=== PATIENT | male | born 1950 | race Caucasian/White ===

== ENCOUNTER 2023-06-08 10:59 | Inpatient (IN) | payer OTHER ==
[~2023-06-08] VITALS: Ht 172.7 cm; Wt 87.3 kg
[2023-06-08 11:19] VITALS: BP_SYST 166; PULSE 74; RESP 18; TEMP 98.3; O2SAT 98
[2023-06-08] MEDS ORDERED: NACL 0.9% 1,000 ML IV ONE (11:45)
[2023-06-08 12:14] LABS: BASOPHILS % (AUTO) 0.1 % (0.0-2.0); EOSINOPHILS # (AUTO) 0.4 K/uL (0.0-0.4); EOSINOPHILS % (AUTO) 1.5 % (0.0-4.0); HEMATOCRIT 36.4 % (36-54); HEMOGLOBIN 12.3 g/dL (14.0-18.0); LYMPHOCYTES # (AUTO) 0.6 K/uL (1.0-5.5); LYMPHOCYTES % (AUTO) 2.4 % (20.5-51.5); MEAN CORPUSCULAR HEMOGLOBIN 30 pg (27-31); MEAN CORPUSCULAR HGB CONC 34 % (32-36); MEAN CORPUSCULAR VOLUME 89 fL (79.0-98.0); MONOCYTES % (AUTO) 4.1 % (1.7-9.3); NEUTROPHILS % (AUTO) 91.9 % (40.0-70.0); PLATELET COUNT (AUTO) 190 K/uL (130-430); RED BLOOD CELL COUNT(AUTO) 4.08 MIL/uL (4.2-6.2); RED CELL DISTRIBUTION WIDTH 14.5 % (9.0-15.0)
[2023-06-08 12:28] LABS: ANION GAP 13 (5-15); CALCIUM 9.3 mg/dL (8.4-11.0); CARBON DIOXIDE 22 mmol/L (23-29); CHLORIDE 87 mmol/L (98-107); GLUCOSE 160 mg/dL (74-106); LIPASE 21 U/L (16-77); POTASSIUM 5.3 mmol/L (3.5-5.1); SODIUM SERUM 122 mmol/L (136-145); UREA NITROGEN, BLOOD 96 mg/dL (8-21)
[2023-06-08 12:29] LABS: INFLUENZA TYPE A Negative (NEGATIVE); INFLUENZA TYPE B NEGATIVE (NEGATIVE)
[2023-06-08 12:39] LABS: CREATININE 7.78 mg/dL (0.55-1.30)
[2023-06-08] MEDS ORDERED: metroNIDAZOLE 500 mg/NS 100 ML IV ONE (14:00)
[2023-06-08] MEDS ORDERED: PIPERACILLIN/TAZO 3.375 GM in NS 50 ML IV ONE (14:00)
[2023-06-08] MEDS ORDERED: PIPERACILLIN/TAZOBACTAM 3.375 GM/VIAL (ZOSYN) IV ONE (14:16)
[2023-06-08 14:19] LABS: BILIRUBIN,URINE NEGATIVE (NEGATIVE); BLOOD, URINE 3+ (NEGATIVE); CLARITY/URINE CLOUDY (CLEAR); COLOR,URINE YELLOW (YELLOW); GLUCOSE,URINE NEGATIVE (NEGATIVE); KETONES,URINE NEGATIVE (NEGATIVE); LEUKOCYTE ESTERASE ,URINE 3+ (NEGATIVE); NITRITE, URINE NEGATIVE (NEGATIVE); PROTEIN URINE 3+ (NEGATIVE); UROBILINOGEN,URINE 0.2 (0.2-1.0)
[2023-06-08 14:20] LABS: BACTERIA,URINE MANY /HPF (None Seen); WBC,URINE >100 /HPF (0-3)
[2023-06-08 14:21] LABS: MUCUS,URINE None Seen /LPF (None Seen)
[2023-06-08] MEDS ORDERED: LOSA100T24 PO (15:48)
[2023-06-08] MEDS ORDERED: LEVO5TAB13 PO (15:48)
[2023-06-08] MEDS ORDERED: CARV12.548 PO (15:48)
[2023-06-08] MEDS ORDERED: BENZ150C4 PO (15:48)
[2023-06-08 16:45] VITALS: BP_SYST 135; PULSE 71; RESP 16; TEMP 96.8; O2SAT 97
[2023-06-08 20:00] VITALS: BP_SYST 115; PULSE 73; RESP 18; TEMP 97.2; O2SAT 99
[2023-06-08] MEDS ORDERED: 0.45% NACL 1,000 ML IV SCH (21:00)
[2023-06-08] MEDS ORDERED: PIPERACILLIN/TAZOBACTAM 2.25 GM VIAL IV ONE (21:47)
[2023-06-08] MEDS: NACL 0.9% 1,000 ML IV SCH (21:55)
[2023-06-08] MEDS: HEPARIN SODIUM,PORCINE 5,000 UNITS/ML VIAL SUBCUT SCH (21:57)
[2023-06-08 22:09] VITALS: O2SAT 99
[2023-06-08] MEDS: PIPERACILLIN/TAZO 2.25G/DEX-IS 50 ML IV SCH (23:15)
[2023-06-08] MEDS ORDERED: SODIUM ZIRCONIUM CYCLOSILICATE 10 GM POWD.PACK PO ONE (23:30)
[2023-06-09] VITALS (8 sets, daily range): BP systolic 132–149; PULSE 66–78; RESP 16–20; TEMP 97–98.2; O2SAT 96–98
[2023-06-09] MEDS ORDERED: SODIUM ZIRCONIUM CYCLOSILICATE 10 GM POWD.PACK PO ONE ×2 (01:02→17:00)
[2023-06-09] MEDS: PIPERACILLIN/TAZO 2.25G/DEX-IS 50 ML IV SCH ×3 (05:21→21:32)
[2023-06-09 06:32] LABS: BASOPHILS % (AUTO) 0.1 % (0.0-2.0); EOSINOPHILS # (AUTO) 0.1 K/uL (0.0-0.4); EOSINOPHILS % (AUTO) 0.4 % (0.0-4.0); HEMOGLOBIN 11.6 g/dL (14.0-18.0); LYMPHOCYTES # (AUTO) 0.7 K/uL (1.0-5.5); LYMPHOCYTES % (AUTO) 3.9 % (20.5-51.5); MEAN CORPUSCULAR HEMOGLOBIN 30 pg (27-31); MEAN CORPUSCULAR HGB CONC 34 % (32-36); MEAN CORPUSCULAR VOLUME 89 fL (79.0-98.0); MONOCYTES # (AUTO) 1.3 K/uL (0.0-1.0); MONOCYTES % (AUTO) 7.6 % (1.7-9.3); PLATELET COUNT (AUTO) 170 K/uL (130-430); RED BLOOD CELL COUNT(AUTO) 3.81 MIL/uL (4.2-6.2); RED CELL DISTRIBUTION WIDTH 14.6 % (9.0-15.0); WHITE BLOOD COUNT (AUTO) 17.1 K/uL (4.8-10.8)
[2023-06-09 06:36] LABS: ANION GAP 16 (5-15); CARBON DIOXIDE 17 mmol/L (23-29); CHLORIDE 90 mmol/L (98-107); GLUCOSE 147 mg/dL (74-106); POTASSIUM 5.4 mmol/L (3.5-5.1); SODIUM SERUM 123 mmol/L (136-145)
[2023-06-09 06:46] LABS: CREATININE 8.36 mg/dL (0.55-1.30); UREA NITROGEN, BLOOD 118 mg/dL (8-21)
[2023-06-09] MEDS: HEPARIN SODIUM,PORCINE 5,000 UNITS/ML VIAL SUBCUT SCH ×2 (09:52→21:35)
[2023-06-09] MEDS ORDERED: MILK OF MAGNESIA 30 ML UDC PO PRN (11:30)
[2023-06-09] MEDS ORDERED: POLYETHYLENE GLYCOL 3350, 17 GM/ POWD.PACK PO ONE (11:30)
[2023-06-09] MEDS: NACL 0.9% 1,000 ML IV SCH ×2 (13:46→21:34)
[2023-06-09] MEDS ORDERED: SODIUM BICARBONATE 8.4% JECT 50 MEQ/50 ML SYRINGE IVP ONE (17:00)
[2023-06-10] VITALS (8 sets, daily range): BP systolic 106–138; PULSE 68–84; RESP 18–20; TEMP 97–98.2; O2SAT 96–99
[2023-06-10] MEDS: PIPERACILLIN/TAZO 2.25G/DEX-IS 50 ML IV SCH ×3 (06:08→22:25)
[2023-06-10 06:28] LABS: INR 1.2 (0.80-1.20); PROTHROMBIN TIME 12.2 SECS (9.5-12.5)
[2023-06-10 06:33] LABS: BASOPHILS % (AUTO) 0.1 % (0.0-2.0); EOSINOPHILS # (AUTO) 0.2 K/uL (0.0-0.4); EOSINOPHILS % (AUTO) 1.1 % (0.0-4.0); HEMATOCRIT 29.5 % (36-54); HEMOGLOBIN 9.7 g/dL (14.0-18.0); LYMPHOCYTES % (AUTO) 6.3 % (20.5-51.5); MEAN CORPUSCULAR HEMOGLOBIN 29 pg (27-31); MEAN CORPUSCULAR HGB CONC 33 % (32-36); MEAN CORPUSCULAR VOLUME 89 fL (79.0-98.0); MONOCYTES # (AUTO) 1.2 K/uL (0.0-1.0); MONOCYTES % (AUTO) 7.6 % (1.7-9.3); NEUTROPHILS # (AUTO) 13.3 K/uL (1.8-7.7); NEUTROPHILS % (AUTO) 84.9 % (40.0-70.0); PLATELET COUNT (AUTO) 157 K/uL (130-430); RED BLOOD CELL COUNT(AUTO) 3.33 MIL/uL (4.2-6.2); RED CELL DISTRIBUTION WIDTH 14.8 % (9.0-15.0); WHITE BLOOD COUNT (AUTO) 15.7 K/uL (4.8-10.8)
[2023-06-10 06:47] LABS: ANION GAP 17 (5-15); CALCIUM 7.5 mg/dL (8.4-11.0); CARBON DIOXIDE 16 mmol/L (23-29); CHLORIDE 90 mmol/L (98-107); GLUCOSE 135 mg/dL (74-106); POTASSIUM 5.2 mmol/L (3.5-5.1); SODIUM SERUM 123 mmol/L (136-145)
[2023-06-10 07:11] LABS: CREATININE 9.66 mg/dL (0.55-1.30); UREA NITROGEN, BLOOD 149 mg/dL (8-21)
[2023-06-10] MEDS: HEPARIN SODIUM,PORCINE 5,000 UNITS/ML VIAL SUBCUT SCH (09:30)
[2023-06-10] MEDS ORDERED: SODIUM BICARBONATE 8.4% JECT 50 MEQ/50 ML SYRINGE IVP ONE (12:15)
[2023-06-10] MEDS: NACL 0.9% 1,000 ML IV SCH ×2 (13:15→22:26)
[2023-06-10] MEDS ORDERED: PANTOPRAZOLE SODIUM 40 MG/VIAL (PROTONIX) IVP SCH (18:00)
[2023-06-10] MEDS ORDERED: PANTOPRAZOLE SODIUM 80 MG in NS 100 ML IVP ONE (18:15)
[2023-06-10] MEDS: PANTOPRAZOLE SODIUM 40 MG in NS 50 ML IV SCH ×2 (18:15→23:21)
[2023-06-10 18:32] LABS: BASOPHILS % (AUTO) 0.2 % (0.0-2.0); EOSINOPHILS # (AUTO) 0.1 K/uL (0.0-0.4); EOSINOPHILS % (AUTO) 0.9 % (0.0-4.0); HEMOGLOBIN 9.7 g/dL (14.0-18.0); LYMPHOCYTES # (AUTO) 1.2 K/uL (1.0-5.5); LYMPHOCYTES % (AUTO) 7.5 % (20.5-51.5); MEAN CORPUSCULAR HEMOGLOBIN 30 pg (27-31); MEAN CORPUSCULAR HGB CONC 33 % (32-36); MEAN CORPUSCULAR VOLUME 90 fL (79.0-98.0); MONOCYTES # (AUTO) 1.5 K/uL (0.0-1.0); MONOCYTES % (AUTO) 9.4 % (1.7-9.3); NEUTROPHILS # (AUTO) 13.2 K/uL (1.8-7.7); PLATELET COUNT (AUTO) 181 K/uL (130-430); RED BLOOD CELL COUNT(AUTO) 3.23 MIL/uL (4.2-6.2); WHITE BLOOD COUNT (AUTO) 16.2 K/uL (4.8-10.8)
[2023-06-10] MEDS ORDERED: PANTOPRAZOLE SODIUM 40 MG/VIAL (PROTONIX) ONE ×2 (22:19→23:19)
[2023-06-11] VITALS (24 sets, daily range): BP systolic 91–127; PULSE 75–101; RESP 12–27; TEMP 97–98.2; O2SAT 95–100
[2023-06-11 00:04] LABS: BLOOD GAS BASE EXCESS -16.9 mmol/L (-3.0-3.0); BLOOD GAS HCO3 11.9 mmol/L (21.0-27.0); BLOOD GAS PCO2 38.1 mmHg (32.0-45.0); BLOOD GAS PH 7.111 (7.350-7.450); BLOOD GAS PO2 90.9 mmHg (75.0-100.0)
[2023-06-11] MEDS ORDERED: SODIUM BICARBONATE 8.4% JECT 50 MEQ/50 ML SYRINGE IVP ONE (00:30)
[2023-06-11] MEDS ORDERED: SODIUM BICARBONATE 8.4% JECT 50 MEQ/50 ML SYRINGE ONE (00:35)
[2023-06-11 02:18] LABS: ALANINE AMINOTRANSFERASE 50 U/L (12-78); ALBUMIN 1.3 g/dL (3.4-4.8); ANION GAP 16 (5-15); ASPARTATE AMINOTRANSFERASE 26 U/L (10-37); CALCIUM 7.2 mg/dL (8.4-11.0); CARBON DIOXIDE 18 mmol/L (23-29); CHLORIDE 93 mmol/L (98-107); GLUCOSE 220 mg/dL (74-106); POTASSIUM 5.7 mmol/L (3.5-5.1); SODIUM SERUM 127 mmol/L (136-145); TOTAL BILIRUBIN 0.7 mg/dL (0.0-1.0); TOTAL PROTEIN, SERUM 4.2 g/dL (6.4-8.3)
[2023-06-11 02:20] LABS: BASOPHILS % (AUTO) 0.2 % (0.0-2.0); EOSINOPHILS # (AUTO) 0.1 K/uL (0.0-0.4); EOSINOPHILS % (AUTO) 0.5 % (0.0-4.0); LYMPHOCYTES # (AUTO) 1.1 K/uL (1.0-5.5); LYMPHOCYTES % (AUTO) 5.8 % (20.5-51.5); MEAN CORPUSCULAR HEMOGLOBIN 29 pg (27-31); MEAN CORPUSCULAR HGB CONC 32 % (32-36); MEAN CORPUSCULAR VOLUME 89 fL (79.0-98.0); MONOCYTES # (AUTO) 1.1 K/uL (0.0-1.0); MONOCYTES % (AUTO) 5.9 % (1.7-9.3); NEUTROPHILS % (AUTO) 87.6 % (40.0-70.0); PLATELET COUNT (AUTO) 158 K/uL (130-430); RED BLOOD CELL COUNT(AUTO) 2.24 MIL/uL (4.2-6.2); RED CELL DISTRIBUTION WIDTH 15.1 % (9.0-15.0); WHITE BLOOD COUNT (AUTO) 19.4 K/uL (4.8-10.8)
[2023-06-11 02:27] LABS: HEMOGLOBIN 6.4 g/dL (14.0-18.0)
[2023-06-11 02:28] LABS: HEMATOCRIT 19.8 % (36-54)
[2023-06-11 02:35] LABS: CREATININE 10.77 mg/dL (0.55-1.30); UREA NITROGEN, BLOOD 179 mg/dL (8-21)
[2023-06-11] MEDS ORDERED: OCTREOTIDE ACETATE 1,250 MCG in NS 248.75 ML IV SCH ×2 (03:00→08:00)
[2023-06-11] MEDS ORDERED: NOREPINEPHRINE BITARTRATE 4 MG in NS 246 ML IV PRN (03:00)
[2023-06-11] MEDS ORDERED: SODIUM ZIRCONIUM CYCLOSILICATE 10 GM POWD.PACK PO ONE (03:00)
[2023-06-11] MEDS ORDERED: OCTREOTIDE ACETATE 50 MCG in NS 50 ML IV ONE ×2 (03:00→08:00)
[2023-06-11] MEDS ORDERED: metroNIDAZOLE 500 mg/NS 100 ML IV SCH ×2 (03:00→14:00)
[2023-06-11] MEDS ORDERED: NS 500 ML IV ONE (03:15)
[2023-06-11] MEDS ORDERED: NACL 0.9% 1,000 ML IV PRN (03:30)
[2023-06-11] MEDS ORDERED: NOREPINEPHRINE BITARTRATE 16 MG in D5W 234 ML IV PRN (03:30)
[2023-06-11] MEDS: PANTOPRAZOLE SODIUM 40 MG in NS 50 ML IV SCH ×4 (04:32→22:18)
[2023-06-11 04:40] LABS: INR 1.2 (0.80-1.20); PROTHROMBIN TIME 12.8 SECS (9.5-12.5)
[2023-06-11] MEDS ORDERED: HEPARIN SODIUM, PORCINE 10,000 UNITS/ 10 ML VIAL ONE (04:54)
[2023-06-11] MEDS ORDERED: metroNIDAZOLE 500 mg/NS 100 ML IV ONE (06:30)
[2023-06-11] MEDS: PIPERACILLIN/TAZO 2.25G/DEX-IS 50 ML IV SCH ×3 (06:33→22:17)
[2023-06-11 08:27] LABS: BLOOD GAS PH 7.403 (7.350-7.450); BLOOD GAS PO2 116.1 mmHg (75.0-100.0)
[2023-06-11 08:28] LABS: ABG O2 SAT% ESTIMATE 98.3 % (94.0-100.0); ALLEN'S TEST POSITIVE (P); BLOOD GAS BASE EXCESS -9.2 mmol/L (-3.0-3.0); BLOOD GAS PCO2 21.4 mmHg (32.0-45.0)
[2023-06-11 10:21] LABS: BASOPHILS # (AUTO) 0.1 K/uL (0.0-0.2); BASOPHILS % (AUTO) 0.3 % (0.0-2.0); EOSINOPHILS # (AUTO) 0.2 K/uL (0.0-0.4); EOSINOPHILS % (AUTO) 1.2 % (0.0-4.0); LYMPHOCYTES # (AUTO) 1.5 K/uL (1.0-5.5); LYMPHOCYTES % (AUTO) 8.3 % (20.5-51.5); MEAN CORPUSCULAR HEMOGLOBIN 29 pg (27-31); MEAN CORPUSCULAR HGB CONC 33 % (32-36); MEAN CORPUSCULAR VOLUME 89 fL (79.0-98.0); MONOCYTES % (AUTO) 5.4 % (1.7-9.3); NEUTROPHILS % (AUTO) 84.8 % (40.0-70.0); PLATELET COUNT (AUTO) 164 K/uL (130-430); RED BLOOD CELL COUNT(AUTO) 2.17 MIL/uL (4.2-6.2); WHITE BLOOD COUNT (AUTO) 17.7 K/uL (4.8-10.8)
[2023-06-11 11:00] LABS: HEMATOCRIT 19.2 % (36-54); HEMOGLOBIN 6.3 g/dL (14.0-18.0)
[2023-06-11] MEDS: METOCLOPRAMIDE HCL 10 MG/2 ML VIAL IVP SCH ×2 (14:13→22:17)
[2023-06-11] MEDS: ALBUMIN HUMAN 25% 50 ML IV SCH ×3 (14:13→23:40)
[2023-06-11] MEDS ORDERED: SIMETHICONE 40 MG/0.6 ML ML ONE (15:03)
[2023-06-11] MEDS ORDERED: fentaNYL CITRATE/PF 100 MCG/2 ML AMP ONE (15:03)
[2023-06-11] MEDS ORDERED: MIDAZOLAM HCL 5 MG/5 ML VIAL ONE (15:03)
[2023-06-11] MEDS: NACL 0.9% 1,000 ML IV SCH (17:32)
[2023-06-11 21:10] LABS: MEAN CORPUSCULAR HEMOGLOBIN 29 pg (27-31); MEAN CORPUSCULAR HGB CONC 33 % (32-36); MEAN CORPUSCULAR VOLUME 89 fL (79.0-98.0); PLATELET COUNT (AUTO) 129 K/uL (130-430); RED BLOOD CELL COUNT(AUTO) 2.36 MIL/uL (4.2-6.2); RED CELL DISTRIBUTION WIDTH 14.4 % (9.0-15.0); WHITE BLOOD COUNT (AUTO) 16.4 K/uL (4.8-10.8)
[2023-06-11 21:22] LABS: HEMATOCRIT 20.9 % (36-54); HEMOGLOBIN 6.8 g/dL (14.0-18.0)
[2023-06-11 21:48] LABS: BAND % (MANUAL) 1 % (0-6); BASOPHILS % (MANUAL) 0 % (0-2); EOSINOPHILS % (MANUAL) 2 % (0-7); LYMPHOCYTES % (MANUAL) 8 % (20-46); METAMYELOCYTES % 2 % (0-0); MONOCYTES % (MANUAL) 10 % (0-11); MYELOCYTES % 2 % (0-0); PLATELET ESTIMATE DECREASED (ADEQUATE)
[2023-06-12] VITALS (24 sets, daily range): BP systolic 95–149; PULSE 77–92; RESP 15–22; TEMP 98–99; O2SAT 96–100
[2023-06-12] MEDS: PANTOPRAZOLE SODIUM 40 MG in NS 50 ML IV SCH ×5 (00:46→21:24)
[2023-06-12] MEDS: NACL 0.9% 1,000 ML IV SCH ×2 (05:15→08:03)
[2023-06-12] MEDS: PIPERACILLIN/TAZO 2.25G/DEX-IS 50 ML IV SCH (05:49)
[2023-06-12] MEDS ORDERED: METOCLOPRAMIDE HCL 10 MG/2 ML VIAL ONE (05:50)
[2023-06-12] MEDS: METOCLOPRAMIDE HCL 10 MG/2 ML VIAL IVP SCH ×3 (05:50→21:24)
[2023-06-12 06:40] LABS: BASOPHILS % (AUTO) 0.1 % (0.0-2.0); EOSINOPHILS # (AUTO) 0.6 K/uL (0.0-0.4); EOSINOPHILS % (AUTO) 3.2 % (0.0-4.0); HEMATOCRIT 22.3 % (36-54); HEMOGLOBIN 7.3 g/dL (14.0-18.0); LYMPHOCYTES # (AUTO) 1.6 K/uL (1.0-5.5); LYMPHOCYTES % (AUTO) 8.2 % (20.5-51.5); MEAN CORPUSCULAR HEMOGLOBIN 29 pg (27-31); MEAN CORPUSCULAR HGB CONC 33 % (32-36); MEAN CORPUSCULAR VOLUME 89 fL (79.0-98.0); MONOCYTES # (AUTO) 1.8 K/uL (0.0-1.0); MONOCYTES % (AUTO) 9.2 % (1.7-9.3); NEUTROPHILS # (AUTO) 15.1 K/uL (1.8-7.7); NEUTROPHILS % (AUTO) 79.3 % (40.0-70.0); PLATELET COUNT (AUTO) 150 K/uL (130-430); RED BLOOD CELL COUNT(AUTO) 2.52 MIL/uL (4.2-6.2); RED CELL DISTRIBUTION WIDTH 14.4 % (9.0-15.0)
[2023-06-12 07:20] LABS: ALANINE AMINOTRANSFERASE 85 U/L (12-78); ALBUMIN 1.8 g/dL (3.4-4.8); ANION GAP 16 (5-15); CARBON DIOXIDE 20 mmol/L (23-29); CHLORIDE 101 mmol/L (98-107); GLUCOSE 142 mg/dL (74-106); SODIUM SERUM 137 mmol/L (136-145); TOTAL BILIRUBIN 0.8 mg/dL (0.0-1.0); TOTAL PROTEIN, SERUM 4.7 g/dL (6.4-8.3)
[2023-06-12 08:04] LABS: ASPARTATE AMINOTRANSFERASE 70 U/L (10-37)
[2023-06-12 08:06] LABS: CREATININE 7.93 mg/dL (0.55-1.30); UREA NITROGEN, BLOOD 132 mg/dL (8-21)
[2023-06-12] MEDS: metroNIDAZOLE 500 mg/NS 100 ML IV SCH ×2 (14:00→21:24)
[2023-06-13] VITALS (22 sets, daily range): BP systolic 117–153; PULSE 70–93; RESP 12–20; TEMP 97.2–98.2; O2SAT 93–100
[2023-06-13] MEDS: PANTOPRAZOLE SODIUM 40 MG in NS 50 ML IV SCH ×2 (00:07→05:15)
[2023-06-13] MEDS: NACL 0.9% 1,000 ML IV SCH (05:05)
[2023-06-13] MEDS: metroNIDAZOLE 500 mg/NS 100 ML IV SCH ×3 (05:16→21:44)
[2023-06-13] MEDS: METOCLOPRAMIDE HCL 10 MG/2 ML VIAL IVP SCH ×3 (05:16→21:44)
[2023-06-13 05:20] LABS: BASOPHILS % (AUTO) 0.2 % (0.0-2.0); EOSINOPHILS # (AUTO) 0.4 K/uL (0.0-0.4); EOSINOPHILS % (AUTO) 1.9 % (0.0-4.0); HEMATOCRIT 30.6 % (36-54); HEMOGLOBIN 10.3 g/dL (14.0-18.0); LYMPHOCYTES # (AUTO) 1.2 K/uL (1.0-5.5); LYMPHOCYTES % (AUTO) 6.5 % (20.5-51.5); MEAN CORPUSCULAR HEMOGLOBIN 30 pg (27-31); MEAN CORPUSCULAR HGB CONC 34 % (32-36); MEAN CORPUSCULAR VOLUME 90 fL (79.0-98.0); MONOCYTES # (AUTO) 1.1 K/uL (0.0-1.0); NEUTROPHILS # (AUTO) 16.2 K/uL (1.8-7.7); NEUTROPHILS % (AUTO) 85.4 % (40.0-70.0); PLATELET COUNT (AUTO) 156 K/uL (130-430); RED CELL DISTRIBUTION WIDTH 14.5 % (9.0-15.0)
[2023-06-13 05:38] LABS: ALANINE AMINOTRANSFERASE 89 U/L (12-78); ALBUMIN 1.9 g/dL (3.4-4.8); ANION GAP 11 (5-15); ASPARTATE AMINOTRANSFERASE 50 U/L (10-37); CALCIUM 8.7 mg/dL (8.4-11.0); CARBON DIOXIDE 26 mmol/L (23-29); CHLORIDE 100 mmol/L (98-107); CREATININE 6.54 mg/dL (0.55-1.30); GLUCOSE 159 mg/dL (74-106); POTASSIUM 3.6 mmol/L (3.5-5.1); SODIUM SERUM 137 mmol/L (136-145); TOTAL BILIRUBIN 0.7 mg/dL (0.0-1.0); TOTAL PROTEIN, SERUM 5.3 g/dL (6.4-8.3); UREA NITROGEN, BLOOD 81 mg/dL (8-21)
[2023-06-13] MEDS: PANTOPRAZOLE SODIUM 40 MG/VIAL (PROTONIX) IVP SCH (21:09)
[2023-06-14] VITALS: BP_SYST 117; PULSE 90; RESP 17; TEMP 97.6; O2SAT 99
[2023-06-14 00:03] VITALS: BP_SYST 153; PULSE 77; RESP 16; TEMP 97.2
[2023-06-14] MEDS: metroNIDAZOLE 500 mg/NS 100 ML IV SCH ×3 (05:21→21:07)
[2023-06-14] MEDS: METOCLOPRAMIDE HCL 10 MG/2 ML VIAL IVP SCH ×3 (05:22→21:06)
[2023-06-14 08:00] VITALS: BP_SYST 121; PULSE 85; RESP 20; TEMP 97.7; O2SAT 98
[2023-06-14] MEDS: PANTOPRAZOLE SODIUM 40 MG/VIAL (PROTONIX) IVP SCH ×2 (09:24→21:06)
[2023-06-14 09:38] LABS: BASOPHILS % (AUTO) 0.2 % (0.0-2.0); EOSINOPHILS # (AUTO) 0.3 K/uL (0.0-0.4); EOSINOPHILS % (AUTO) 1.6 % (0.0-4.0); HEMATOCRIT 32.7 % (36-54); HEMOGLOBIN 10.7 g/dL (14.0-18.0); LYMPHOCYTES # (AUTO) 1.2 K/uL (1.0-5.5); LYMPHOCYTES % (AUTO) 5.6 % (20.5-51.5); MEAN CORPUSCULAR HEMOGLOBIN 30 pg (27-31); MEAN CORPUSCULAR HGB CONC 33 % (32-36); MEAN CORPUSCULAR VOLUME 91 fL (79.0-98.0); MONOCYTES # (AUTO) 1.2 K/uL (0.0-1.0); MONOCYTES % (AUTO) 5.9 % (1.7-9.3); NEUTROPHILS # (AUTO) 18.1 K/uL (1.8-7.7); NEUTROPHILS % (AUTO) 86.7 % (40.0-70.0); PLATELET COUNT (AUTO) 215 K/uL (130-430); RED BLOOD CELL COUNT(AUTO) 3.61 MIL/uL (4.2-6.2); RED CELL DISTRIBUTION WIDTH 14.7 % (9.0-15.0); WHITE BLOOD COUNT (AUTO) 20.9 K/uL (4.8-10.8)
[2023-06-14 12:00] VITALS: BP_SYST 130; PULSE 86; RESP 20; TEMP 98; O2SAT 97
[2023-06-14 18:57] VITALS: BP_SYST 125; PULSE 74; RESP 18; TEMP 97.7; O2SAT 98
[2023-06-14 19:45] VITALS: BP_SYST 152; PULSE 88; RESP 18; TEMP 97.5; O2SAT 97
[2023-06-15 01:30] VITALS: BP_SYST 150; PULSE 95; RESP 18; TEMP 98.4; O2SAT 97
[2023-06-15] MEDS: METOCLOPRAMIDE HCL 10 MG/2 ML VIAL IVP SCH ×3 (05:16→21:06)
[2023-06-15] MEDS: metroNIDAZOLE 500 mg/NS 100 ML IV SCH (05:16)
[2023-06-15 06:14] LABS: BASOPHILS # (AUTO) 0.1 K/uL (0.0-0.2); BASOPHILS % (AUTO) 0.3 % (0.0-2.0); EOSINOPHILS # (AUTO) 0.3 K/uL (0.0-0.4); EOSINOPHILS % (AUTO) 1.6 % (0.0-4.0); HEMATOCRIT 30.3 % (36-54); HEMOGLOBIN 10.3 g/dL (14.0-18.0); LYMPHOCYTES # (AUTO) 1.2 K/uL (1.0-5.5); LYMPHOCYTES % (AUTO) 5.6 % (20.5-51.5); MEAN CORPUSCULAR HEMOGLOBIN 31 pg (27-31); MEAN CORPUSCULAR HGB CONC 34 % (32-36); MEAN CORPUSCULAR VOLUME 91 fL (79.0-98.0); MONOCYTES # (AUTO) 1.2 K/uL (0.0-1.0); NEUTROPHILS % (AUTO) 86.5 % (40.0-70.0); PLATELET COUNT (AUTO) 263 K/uL (130-430); RED BLOOD CELL COUNT(AUTO) 3.34 MIL/uL (4.2-6.2); RED CELL DISTRIBUTION WIDTH 14.6 % (9.0-15.0); WHITE BLOOD COUNT (AUTO) 20.8 K/uL (4.8-10.8)
[2023-06-15 06:56] LABS: ANION GAP 16 (5-15); CARBON DIOXIDE 23 mmol/L (23-29); CHLORIDE 99 mmol/L (98-107); CREATININE 7.09 mg/dL (0.55-1.30); GLUCOSE 119 mg/dL (74-106); POTASSIUM 3.1 mmol/L (3.5-5.1); SODIUM SERUM 138 mmol/L (136-145); UREA NITROGEN, BLOOD 55 mg/dL (8-21)
[2023-06-15 08:00] VITALS: BP_SYST 141; PULSE 86; RESP 18; TEMP 97.3; O2SAT 97
[2023-06-15] MEDS: PANTOPRAZOLE SODIUM 40 MG/VIAL (PROTONIX) IVP SCH ×2 (09:22→21:06)
[2023-06-15] MEDS ORDERED: POTASSIUM CHLORIDE 20 MEQ TABLET.ER PO ONE (11:15)
[2023-06-15] MEDS: PIPERACILLIN/TAZO 2.25G/DEX-IS 50 ML IV SCH ×3 (13:53→23:49)
[2023-06-15 14:06] VITALS: BP_SYST 133; PULSE 80; RESP 18; TEMP 97.7; O2SAT 100
[2023-06-15 18:22] VITALS: BP_SYST 140; PULSE 96; RESP 18; TEMP 97.6; O2SAT 98
[2023-06-15 19:55] VITALS: BP_SYST 139; PULSE 91; RESP 18; TEMP 98.1; O2SAT 100
[2023-06-15 23:56] VITALS: BP_SYST 159; PULSE 87; RESP 16; TEMP 96.2; O2SAT 97
[2023-06-16] MEDS: PIPERACILLIN/TAZO 2.25G/DEX-IS 50 ML IV SCH ×3 (05:18→17:49)
[2023-06-16] MEDS: METOCLOPRAMIDE HCL 10 MG/2 ML VIAL IVP SCH ×2 (05:18→14:47)
[2023-06-16 07:03] LABS: BASOPHILS # (AUTO) 0.1 K/uL (0.0-0.2); BASOPHILS % (AUTO) 0.6 % (0.0-2.0); EOSINOPHILS # (AUTO) 0.3 K/uL (0.0-0.4); EOSINOPHILS % (AUTO) 1.6 % (0.0-4.0); HEMOGLOBIN 10.9 g/dL (14.0-18.0); LYMPHOCYTES # (AUTO) 0.9 K/uL (1.0-5.5); LYMPHOCYTES % (AUTO) 4.3 % (20.5-51.5); MEAN CORPUSCULAR HEMOGLOBIN 31 pg (27-31); MEAN CORPUSCULAR HGB CONC 34 % (32-36); MEAN CORPUSCULAR VOLUME 92 fL (79.0-98.0); MONOCYTES # (AUTO) 1.1 K/uL (0.0-1.0); MONOCYTES % (AUTO) 5.5 % (1.7-9.3); NEUTROPHILS # (AUTO) 18.4 K/uL (1.8-7.7); PLATELET COUNT (AUTO) 104 K/uL (130-430); RED BLOOD CELL COUNT(AUTO) 3.46 MIL/uL (4.2-6.2); RED CELL DISTRIBUTION WIDTH 14.5 % (9.0-15.0); WHITE BLOOD COUNT (AUTO) 20.9 K/uL (4.8-10.8)
[2023-06-16 07:13] LABS: ANION GAP 14 (5-15); CALCIUM 7.8 mg/dL (8.4-11.0); CARBON DIOXIDE 21 mmol/L (23-29); CHLORIDE 102 mmol/L (98-107); GLUCOSE 133 mg/dL (74-106); POTASSIUM 3.5 mmol/L (3.5-5.1); SODIUM SERUM 137 mmol/L (136-145); UREA NITROGEN, BLOOD 46 mg/dL (8-21)
[2023-06-16 08:00] VITALS: O2SAT 95
[2023-06-16 08:23] VITALS: BP_SYST 133; PULSE 85; RESP 20; TEMP 98.3; O2SAT 98
[2023-06-16] MEDS: PANTOPRAZOLE SODIUM 40 MG/VIAL (PROTONIX) IVP SCH ×2 (08:53→20:41)
[2023-06-16 11:42] VITALS: BP_SYST 122; PULSE 90; RESP 16; TEMP 97.7; O2SAT 96
[2023-06-16] MEDS ORDERED: VANCOMYCIN HCL Non-Formulary 125 MG CAPSULE PO SCH (13:00)
[2023-06-16] MEDS: VANCOMYCIN HCL ORAL SOLUTION 125 MG/5 ML, 150 ML PO SCH ×3 (13:41→20:41)
[2023-06-16 15:02] VITALS: BP_SYST 151; PULSE 95; RESP 16; TEMP 97.2; O2SAT 96
[2023-06-16 20:00] VITALS: BP_SYST 141; PULSE 93; RESP 18; TEMP 97.9; O2SAT 98
[2023-06-16] MEDS: LACTOBACILLUS RHAMNOSUS GG 1 CAP CAPSULE PO SCH (20:41)
[2023-06-16] MEDS ORDERED: SACCHAROMYCES BOULARDII 250 MG CAPSULE (FLORASTOR) PO SCH (21:00)
[2023-06-17] MEDS: METOCLOPRAMIDE HCL 10 MG/2 ML VIAL IVP SCH ×4 (00:40→22:05)
[2023-06-17] MEDS: PIPERACILLIN/TAZO 2.25G/DEX-IS 50 ML IV SCH ×2 (00:41→05:14)
[2023-06-17 00:47] VITALS: BP_SYST 157; PULSE 92; RESP 19; TEMP 97.7
[2023-06-17 07:55] LABS: BASOPHILS # (AUTO) 0.1 K/uL (0.0-0.2); BASOPHILS % (AUTO) 0.8 % (0.0-2.0); EOSINOPHILS # (AUTO) 0.4 K/uL (0.0-0.4); EOSINOPHILS % (AUTO) 2.1 % (0.0-4.0); HEMATOCRIT 30.7 % (36-54); HEMOGLOBIN 10.4 g/dL (14.0-18.0); LYMPHOCYTES # (AUTO) 0.7 K/uL (1.0-5.5); MEAN CORPUSCULAR HEMOGLOBIN 31 pg (27-31); MEAN CORPUSCULAR HGB CONC 34 % (32-36); MEAN CORPUSCULAR VOLUME 92 fL (79.0-98.0); MONOCYTES # (AUTO) 1.1 K/uL (0.0-1.0); MONOCYTES % (AUTO) 6.6 % (1.7-9.3); NEUTROPHILS # (AUTO) 14.5 K/uL (1.8-7.7); NEUTROPHILS % (AUTO) 86.5 % (40.0-70.0); PLATELET COUNT (AUTO) 392 K/uL (130-430); RED BLOOD CELL COUNT(AUTO) 3.35 MIL/uL (4.2-6.2); RED CELL DISTRIBUTION WIDTH 14.1 % (9.0-15.0); WHITE BLOOD COUNT (AUTO) 16.8 K/uL (4.8-10.8)
[2023-06-17 08:00] VITALS: BP_SYST 160; PULSE 78; RESP 18; TEMP 98.8; O2SAT 97; O2SAT 99
[2023-06-17 08:34] LABS: ALANINE AMINOTRANSFERASE 39 U/L (12-78); ALBUMIN 2.2 g/dL (3.4-4.8); ANION GAP 16 (5-15); ASPARTATE AMINOTRANSFERASE 20 U/L (10-37); CALCIUM 8.5 mg/dL (8.4-11.0); CARBON DIOXIDE 21 mmol/L (23-29); CHLORIDE 98 mmol/L (98-107); GLUCOSE 128 mg/dL (74-106); SODIUM SERUM 135 mmol/L (136-145); TOTAL BILIRUBIN 0.6 mg/dL (0.0-1.0); TOTAL PROTEIN, SERUM 5.9 g/dL (6.4-8.3); UREA NITROGEN, BLOOD 53 mg/dL (8-21)
[2023-06-17 08:38] LABS: CREATININE 7.61 mg/dL (0.55-1.30)
[2023-06-17] MEDS: VANCOMYCIN HCL ORAL SOLUTION 125 MG/5 ML, 150 ML PO SCH ×4 (09:00→22:04)
[2023-06-17] MEDS: PANTOPRAZOLE SODIUM 40 MG/VIAL (PROTONIX) IVP SCH ×2 (09:17→22:05)
[2023-06-17] MEDS: LACTOBACILLUS RHAMNOSUS GG 1 CAP CAPSULE PO SCH ×2 (09:19→22:04)
[2023-06-17 11:45] VITALS: BP_SYST 143; PULSE 94; RESP 18; TEMP 98.7; O2SAT 95
[2023-06-17 17:53] VITALS: BP_SYST 149; PULSE 88; RESP 17; TEMP 98; O2SAT 98
[2023-06-17 20:00] VITALS: BP_SYST 146; PULSE 91; RESP 18; TEMP 98; O2SAT 99
[2023-06-18 00:25] VITALS: BP_SYST 154; PULSE 87; RESP 20; TEMP 98.6; O2SAT 98
[2023-06-18] MEDS ORDERED: POTASSIUM CHLORIDE 20 MEQ TABLET.ER PO ONE (02:15)
[2023-06-18] MEDS: METOCLOPRAMIDE HCL 10 MG/2 ML VIAL IVP SCH ×3 (06:07→22:14)
[2023-06-18 08:00] VITALS: BP_SYST 167; PULSE 98; RESP 18; TEMP 98.6; O2SAT 98; O2SAT 99
[2023-06-18] MEDS: LACTOBACILLUS RHAMNOSUS GG 1 CAP CAPSULE PO SCH ×2 (08:28→22:14)
[2023-06-18] MEDS: VANCOMYCIN HCL ORAL SOLUTION 125 MG/5 ML, 150 ML PO SCH ×4 (09:40→22:14)
[2023-06-18] MEDS: PANTOPRAZOLE SODIUM 40 MG/VIAL (PROTONIX) IVP SCH ×2 (10:33→22:13)
[2023-06-18 11:29] VITALS: BP_SYST 144; PULSE 87; RESP 18; TEMP 97.5; O2SAT 99
[2023-06-18] MEDS ORDERED: HEPARIN SODIUM,PORCINE 5,000 UNITS/ML VIAL MC PRN ×2 (15:45→16:44)
[2023-06-18 17:00] VITALS: BP_SYST 149; PULSE 85; RESP 17; TEMP 98; O2SAT 98
[2023-06-18 19:00] VITALS: BP_SYST 145; PULSE 84; RESP 16; TEMP 98.2; O2SAT 96; O2SAT 98
[2023-06-18 20:00] VITALS: BP_SYST 145; PULSE 84; RESP 16; TEMP 98.2; O2SAT 98
[2023-06-19 00:52] VITALS: BP_SYST 126; PULSE 76; RESP 20; TEMP 97.8; O2SAT 95
[2023-06-19] MEDS: METOCLOPRAMIDE HCL 10 MG/2 ML VIAL IVP SCH ×3 (05:51→22:10)
[2023-06-19 05:58] LABS: BASOPHILS # (AUTO) 0.1 K/uL (0.0-0.2); BASOPHILS % (AUTO) 0.9 % (0.0-2.0); EOSINOPHILS # (AUTO) 0.3 K/uL (0.0-0.4); HEMATOCRIT 28.4 % (36-54); HEMOGLOBIN 9.9 g/dL (14.0-18.0); LYMPHOCYTES # (AUTO) 0.8 K/uL (1.0-5.5); LYMPHOCYTES % (AUTO) 7.5 % (20.5-51.5); MEAN CORPUSCULAR HEMOGLOBIN 32 pg (27-31); MEAN CORPUSCULAR HGB CONC 35 % (32-36); MEAN CORPUSCULAR VOLUME 91 fL (79.0-98.0); MONOCYTES % (AUTO) 9.1 % (1.7-9.3); NEUTROPHILS # (AUTO) 8.7 K/uL (1.8-7.7); NEUTROPHILS % (AUTO) 79.5 % (40.0-70.0); PLATELET COUNT (AUTO) 478 K/uL (130-430); RED BLOOD CELL COUNT(AUTO) 3.13 MIL/uL (4.2-6.2); RED CELL DISTRIBUTION WIDTH 14.3 % (9.0-15.0)
[2023-06-19 06:23] LABS: ALANINE AMINOTRANSFERASE 49 U/L (12-78); ALBUMIN 2.2 g/dL (3.4-4.8); ANION GAP 13 (5-15); ASPARTATE AMINOTRANSFERASE 38 U/L (10-37); CALCIUM 8.4 mg/dL (8.4-11.0); CARBON DIOXIDE 26 mmol/L (23-29); CHLORIDE 102 mmol/L (98-107); CREATININE 6.03 mg/dL (0.55-1.30); GLUCOSE 98 mg/dL (74-106); SODIUM SERUM 141 mmol/L (136-145); TOTAL BILIRUBIN 0.5 mg/dL (0.0-1.0); TOTAL PROTEIN, SERUM 5.8 g/dL (6.4-8.3); UREA NITROGEN, BLOOD 41 mg/dL (8-21)
[2023-06-19 06:27] LABS: POTASSIUM 2.8 mmol/L (3.5-5.1)
[2023-06-19] MEDS: LACTOBACILLUS RHAMNOSUS GG 1 CAP CAPSULE PO SCH ×2 (10:23→22:09)
[2023-06-19] MEDS: PANTOPRAZOLE SODIUM 40 MG/VIAL (PROTONIX) IVP SCH ×2 (10:23→22:09)
[2023-06-19] MEDS: VANCOMYCIN HCL ORAL SOLUTION 125 MG/5 ML, 150 ML PO SCH ×4 (10:28→22:12)
[2023-06-19] MEDS ORDERED: KCL 40 mEq in 100 mL (PREMIX) 100 ML IV ONE ×2 (11:00→20:00)
[2023-06-19 11:45] VITALS: BP_SYST 153; PULSE 101; RESP 17; TEMP 98.2; O2SAT 98
[2023-06-19] MEDS ORDERED: POTASSIUM CHLORIDE 40 MEQ in NS 250 ML IV ONE ×2 (12:00→20:00)
[2023-06-19 17:13] VITALS: BP_SYST 142; PULSE 94; RESP 18; TEMP 98.5; O2SAT 100
[2023-06-19 20:15] VITALS: RESP 20; TEMP 97.3; O2SAT 98
[2023-06-20 01:11] VITALS: BP_SYST 165; PULSE 94; RESP 17; TEMP 96.6; O2SAT 95
[2023-06-20 05:07] LABS: HEPATITIS B SURFACE AG Negative (Negative); HEPATITIS C VIRUS AB Non Reactive (Non Reactive)
[2023-06-20] MEDS: METOCLOPRAMIDE HCL 10 MG/2 ML VIAL IVP SCH ×3 (06:40→21:08)
[2023-06-20 08:00] VITALS: BP_SYST 155; PULSE 88; RESP 18; TEMP 97.1; O2SAT 98
[2023-06-20] MEDS: VANCOMYCIN HCL ORAL SOLUTION 125 MG/5 ML, 150 ML PO SCH ×4 (09:00→21:09)
[2023-06-20] MEDS: LACTOBACILLUS RHAMNOSUS GG 1 CAP CAPSULE PO SCH ×2 (09:00→21:08)
[2023-06-20] MEDS: PANTOPRAZOLE SODIUM 40 MG/VIAL (PROTONIX) IVP SCH ×2 (09:12→21:08)
[2023-06-20 12:10] VITALS: BP_SYST 158; PULSE 89; RESP 17; TEMP 96.8; O2SAT 96
[2023-06-20 12:28] LABS: POTASSIUM 3.5 mmol/L (3.5-5.1)
[2023-06-20 13:06] LABS: QUANTIFERON TB GOLD Indeterminate (Negative)
[2023-06-20 16:16] VITALS: BP_SYST 156; PULSE 87; RESP 18; TEMP 97; O2SAT 97
[2023-06-20] MEDS ORDERED: LIDOCAINE 1% 10 MG/ML, 20 ML MDV ONE (17:30)
[2023-06-20] MEDS ORDERED: NS 50 ML BAG IV ONE (17:30)
[2023-06-20] MEDS ORDERED: PROPOFOL 200MG/ 20ML VIAL (DIPRIVAN) IV ONE (17:30)
[2023-06-20] MEDS ORDERED: NS IRRIG SOLN 1000 ML IR ONE (17:30)
[2023-06-20] MEDS ORDERED: ONDANSETRON HCL 4 MG/2 ML VIAL ONE (17:30)
[2023-06-20] MEDS ORDERED: HEPARIN SODIUM, PORCINE 10,000 UNITS/ 10 ML VIAL ONE (17:30)
[2023-06-20] MEDS ORDERED: NS 1000 ML IV.SOLN IV ONE (17:30)
[2023-06-20] MEDS ORDERED: WATER FOR IRRIGATION,STERILE 1,000 ML IRRIG.SOLN IR ONE (17:30)
[2023-06-20] MEDS ORDERED: ONDANSETRON HCL 4 MG/2 ML VIAL IVP PRN (18:15)
[2023-06-20] MEDS ORDERED: NACL 0.9% 1,000 ML IV SCH (18:15)
[2023-06-20] MEDS ORDERED: HYDROcodone/ACETAMIN 5-325 MG TAB (NORCO/ VICODIN) PO PRN (18:30)
[2023-06-20] MEDS ORDERED: MORPHINE 4 MG INJ. 4 MG/ML VIAL IVP PRN (18:30)
[2023-06-20 20:00] VITALS: BP_SYST 156; PULSE 86; PULSE 88; RESP 18; RESP 20; TEMP 97.6; O2SAT 100; O2SAT 98
[2023-06-21 00:18] VITALS: BP_SYST 147; PULSE 92; RESP 18; TEMP 97.6; O2SAT 97
[2023-06-21] MEDS: METOCLOPRAMIDE HCL 10 MG/2 ML VIAL IVP SCH ×3 (05:48→22:33)
[2023-06-21 08:00] VITALS: BP_SYST 130; PULSE 90; RESP 18; TEMP 97.7; O2SAT 97; O2SAT 98
[2023-06-21] MEDS: LACTOBACILLUS RHAMNOSUS GG 1 CAP CAPSULE PO SCH ×2 (10:17→21:41)
[2023-06-21] MEDS: PANTOPRAZOLE SODIUM 40 MG/VIAL (PROTONIX) IVP SCH ×2 (10:18→22:31)
[2023-06-21] MEDS: VANCOMYCIN HCL ORAL SOLUTION 125 MG/5 ML, 150 ML PO SCH ×4 (10:18→21:41)
[2023-06-21 11:05] VITALS: BP_SYST 113; PULSE 110; RESP 16; TEMP 96.7; O2SAT 96
[2023-06-21 15:20] VITALS: BP_SYST 138; PULSE 80; RESP 16; TEMP 97.3; O2SAT 96
[2023-06-21 16:00] VITALS: BP_SYST 130; PULSE 95; RESP 18; TEMP 97.5; O2SAT 97
[2023-06-21 20:00] VITALS: BP_SYST 140; PULSE 100; RESP 17; TEMP 98.1; O2SAT 96
[2023-06-22] VITALS (7 sets, daily range): BP systolic 133–155; PULSE 87–98; RESP 16–18; TEMP 97.7–98.2; O2SAT 92–100
[2023-06-22 06:30] LABS: ANION GAP 12 (5-15); CARBON DIOXIDE 25 mmol/L (23-29); CHLORIDE 101 mmol/L (98-107); CREATININE 4.97 mg/dL (0.55-1.30); GLUCOSE 109 mg/dL (74-106); SODIUM SERUM 138 mmol/L (136-145); UREA NITROGEN, BLOOD 35 mg/dL (8-21)
[2023-06-22 07:03] LABS: POTASSIUM 2.5 mmol/L (3.5-5.1)
[2023-06-22 07:19] LABS: BASOPHILS # (AUTO) 0.1 K/uL (0.0-0.2); BASOPHILS % (AUTO) 1.4 % (0.0-2.0); EOSINOPHILS # (AUTO) 0.2 K/uL (0.0-0.4); EOSINOPHILS % (AUTO) 2.4 % (0.0-4.0); HEMATOCRIT 28.4 % (36-54); HEMOGLOBIN 9.8 g/dL (14.0-18.0); LYMPHOCYTES # (AUTO) 1.2 K/uL (1.0-5.5); LYMPHOCYTES % (AUTO) 11.8 % (20.5-51.5); MEAN CORPUSCULAR HEMOGLOBIN 31 pg (27-31); MEAN CORPUSCULAR HGB CONC 34 % (32-36); MEAN CORPUSCULAR VOLUME 91 fL (79.0-98.0); MONOCYTES # (AUTO) 1.1 K/uL (0.0-1.0); MONOCYTES % (AUTO) 10.9 % (1.7-9.3); NEUTROPHILS # (AUTO) 7.2 K/uL (1.8-7.7); NEUTROPHILS % (AUTO) 73.5 % (40.0-70.0); PLATELET COUNT (AUTO) 463 K/uL (130-430); RED BLOOD CELL COUNT(AUTO) 3.11 MIL/uL (4.2-6.2); RED CELL DISTRIBUTION WIDTH 14.4 % (9.0-15.0); WHITE BLOOD COUNT (AUTO) 9.9 K/uL (4.8-10.8)
[2023-06-22] MEDS: VANCOMYCIN HCL ORAL SOLUTION 125 MG/5 ML, 150 ML PO SCH ×4 (09:19→21:00)
[2023-06-22] MEDS: LACTOBACILLUS RHAMNOSUS GG 1 CAP CAPSULE PO SCH ×2 (09:19→20:55)
[2023-06-22] MEDS: PANTOPRAZOLE SODIUM 40 MG/VIAL (PROTONIX) IVP SCH ×2 (11:17→21:48)
[2023-06-22] MEDS ORDERED: POTASSIUM CHLORIDE 20 MEQ TABLET.ER PO ONE ×3 (12:45→19:45)
[2023-06-22] MEDS: METOCLOPRAMIDE HCL 10 MG/2 ML VIAL IVP SCH ×3 (14:00→22:13)
[2023-06-22 17:26] LABS: ANION GAP 12 (5-15); CALCIUM 8.3 mg/dL (8.4-11.0); CARBON DIOXIDE 26 mmol/L (23-29); CHLORIDE 101 mmol/L (98-107); CREATININE 5.48 mg/dL (0.55-1.30); GLUCOSE 117 mg/dL (74-106); SODIUM SERUM 139 mmol/L (136-145); UREA NITROGEN, BLOOD 37 mg/dL (8-21)
[2023-06-22 17:29] LABS: POTASSIUM 2.7 mmol/L (3.5-5.1)
[2023-06-23] VITALS: BP_SYST 134; PULSE 99; RESP 20; TEMP 98.2; O2SAT 97
[2023-06-23 02:44] VITALS: BP_SYST 134; PULSE 99; RESP 18; TEMP 98.2; O2SAT 97
[2023-06-23] MEDS: METOCLOPRAMIDE HCL 10 MG/2 ML VIAL IVP SCH ×3 (06:39→22:12)
[2023-06-23 07:48] LABS: ALANINE AMINOTRANSFERASE 83 U/L (12-78); ALBUMIN 2.4 g/dL (3.4-4.8); ANION GAP 13 (5-15); ASPARTATE AMINOTRANSFERASE 63 U/L (10-37); CALCIUM 8.8 mg/dL (8.4-11.0); CARBON DIOXIDE 21 mmol/L (23-29); CHLORIDE 103 mmol/L (98-107); CREATININE 5.46 mg/dL (0.55-1.30); GLUCOSE 96 mg/dL (74-106); SODIUM SERUM 137 mmol/L (136-145); TOTAL BILIRUBIN 0.5 mg/dL (0.0-1.0); TOTAL PROTEIN, SERUM 6.3 g/dL (6.4-8.3); UREA NITROGEN, BLOOD 39 mg/dL (8-21)
[2023-06-23 08:20] VITALS: BP_SYST 150; PULSE 90; RESP 17; TEMP 97.6; O2SAT 96
[2023-06-23] MEDS ORDERED: POTASSIUM CHLORIDE 20 MEQ TABLET.ER PO SCH (09:00)
[2023-06-23] MEDS: PANTOPRAZOLE SODIUM 40 MG/VIAL (PROTONIX) IVP SCH ×2 (10:59→22:12)
[2023-06-23] MEDS: LACTOBACILLUS RHAMNOSUS GG 1 CAP CAPSULE PO SCH ×2 (11:00→21:17)
[2023-06-23 17:48] VITALS: O2SAT 96
[2023-06-23] MEDS ORDERED: POTASSIUM CHLORIDE 20 MEQ/PKT PACKET PO ONE (18:00)
[2023-06-23 20:00] VITALS: BP_SYST 126; PULSE 86; RESP 16; TEMP 97.5; O2SAT 95
[2023-06-23 22:55] VITALS: O2SAT 95
[2023-06-24] VITALS: BP_SYST 143; PULSE 98; RESP 16; TEMP 97.6; O2SAT 100
[2023-06-24] MEDS: METOCLOPRAMIDE HCL 10 MG/2 ML VIAL IVP SCH (06:40)
[2023-06-24 07:17] LABS: ANION GAP 12 (5-15); CARBON DIOXIDE 27 mmol/L (23-29); CHLORIDE 103 mmol/L (98-107); CREATININE 4.49 mg/dL (0.55-1.30); GLUCOSE 125 mg/dL (74-106); POTASSIUM 3.1 mmol/L (3.5-5.1); SODIUM SERUM 142 mmol/L (136-145); UREA NITROGEN, BLOOD 27 mg/dL (8-21)
[2023-06-24 08:02] VITALS: BP_SYST 153; PULSE 89; RESP 18; TEMP 98; O2SAT 97
[2023-06-24] MEDS: LACTOBACILLUS RHAMNOSUS GG 1 CAP CAPSULE PO SCH (08:18)
[2023-06-24] MEDS ORDERED: POTASSIUM CHLORIDE 20 MEQ TABLET.ER PO ONE ×2 (08:30→14:30)
[2023-06-24 08:55] LABS: BASOPHILS # (AUTO) 0.2 K/uL (0.0-0.2); EOSINOPHILS # (AUTO) 0.4 K/uL (0.0-0.4); EOSINOPHILS % (AUTO) 4.7 % (0.0-4.0); HEMATOCRIT 27.5 % (36-54); HEMOGLOBIN 9.6 g/dL (14.0-18.0); LYMPHOCYTES # (AUTO) 1.1 K/uL (1.0-5.5); LYMPHOCYTES % (AUTO) 13.5 % (20.5-51.5); MEAN CORPUSCULAR HEMOGLOBIN 32 pg (27-31); MEAN CORPUSCULAR HGB CONC 35 % (32-36); MEAN CORPUSCULAR VOLUME 91 fL (79.0-98.0); MONOCYTES # (AUTO) 0.9 K/uL (0.0-1.0); MONOCYTES % (AUTO) 11.2 % (1.7-9.3); NEUTROPHILS # (AUTO) 5.7 K/uL (1.8-7.7); NEUTROPHILS % (AUTO) 68.6 % (40.0-70.0); PLATELET COUNT (AUTO) 408 K/uL (130-430); RED BLOOD CELL COUNT(AUTO) 3.02 MIL/uL (4.2-6.2); RED CELL DISTRIBUTION WIDTH 14.3 % (9.0-15.0); WHITE BLOOD COUNT (AUTO) 8.2 K/uL (4.8-10.8)
[2023-06-24 09:39] VITALS: O2SAT 96
[2023-06-24 11:37] VITALS: BP_SYST 116; PULSE 97; RESP 16; TEMP 97; O2SAT 99
[2023-06-24] MEDS: PANTOPRAZOLE SODIUM 40 MG/VIAL (PROTONIX) IVP SCH (12:13)
[2023-06-24] MEDS ORDERED: PRO40 PO (14:23)
[2023-06-24 16:02] VITALS: BP_SYST 117; PULSE 90; RESP 17; TEMP 97.6; O2SAT 98
[2023-06-24 17:36] LABS: ANION GAP 10 (5-15); CALCIUM 8.3 mg/dL (8.4-11.0); CARBON DIOXIDE 27 mmol/L (23-29); CHLORIDE 103 mmol/L (98-107); CREATININE 5.19 mg/dL (0.55-1.30); GLUCOSE 146 mg/dL (74-106); POTASSIUM 3.6 mmol/L (3.5-5.1); SODIUM SERUM 140 mmol/L (136-145); UREA NITROGEN, BLOOD 32 mg/dL (8-21)
[2023-06-24 18:01] VITALS: BP_SYST 122; PULSE 81; RESP 18; TEMP 97.2; O2SAT 98
== END 2023-06-24 18:34 | disposition home or self-care (01) | DRG 871 ==
LOC: SED 10:59 → SMU 14:29 → STU 06-10 18:24 → SIC 06-11 02:54 → SMU 06-13 19:00 → STU 06-13 19:23 → SMU 06-15 13:52
PROVIDERS: ADMIT Family Medicine; ATTEND Family Medicine
PROC: 0W3P8ZZ Control Bleeding in Gastrointestinal Tract, Via Natural or Artificial Opening Endoscopic (ICD-10-PCS; 2023-06-11)
PROC: 02HV33Z Insertion of Infusion Device into Superior Vena Cava, Percutaneous Approach (ICD-10-PCS; 2023-06-11)
PROC: B548ZZA Ultrasonography of Superior Vena Cava, Guidance (ICD-10-PCS; 2023-06-11)
PROC: 30233N1 Transfusion of Nonautologous Red Blood Cells into Peripheral Vein, Percutaneous Approach (ICD-10-PCS; 2023-06-11)
PROC: 5A1D70Z Performance of Urinary Filtration, Intermittent, Less than 6 Hours Per Day (ICD-10-PCS; 2023-06-11)
PROC: 0DB68ZX Excision of Stomach, Via Natural or Artificial Opening Endoscopic, Diagnostic (ICD-10-PCS; principal; 2023-06-11 17:30)
PROC: XW0G886 Introduction of Mineral-based Topical Hemostatic Agent into Upper GI, Via Natural or Artificial Opening Endoscopic, New Technology Group 6 (ICD-10-PCS; 2023-06-11 17:30)
PROC: 05HY33Z Insertion of Infusion Device into Upper Vein, Percutaneous Approach (ICD-10-PCS; 2023-06-12)
PROC: 5A1D70Z Performance of Urinary Filtration, Intermittent, Less than 6 Hours Per Day (ICD-10-PCS; 2023-06-12)
PROC: 5A1D70Z Performance of Urinary Filtration, Intermittent, Less than 6 Hours Per Day (ICD-10-PCS; 2023-06-13)
PROC: 5A1D70Z Performance of Urinary Filtration, Intermittent, Less than 6 Hours Per Day (ICD-10-PCS; 2023-06-15)
PROC: 5A1D70Z Performance of Urinary Filtration, Intermittent, Less than 6 Hours Per Day (ICD-10-PCS; 2023-06-18)
PROC: 5A1D70Z Performance of Urinary Filtration, Intermittent, Less than 6 Hours Per Day (ICD-10-PCS; 2023-06-19)
PROC: 0JH63XZ Insertion of Tunneled Vascular Access Device into Chest Subcutaneous Tissue and Fascia, Percutaneous Approach (ICD-10-PCS; 2023-06-20)
PROC: 02HV33Z Insertion of Infusion Device into Superior Vena Cava, Percutaneous Approach (ICD-10-PCS; 2023-06-20)
PROC: B5181ZA Fluoroscopy of Superior Vena Cava using Low Osmolar Contrast, Guidance (ICD-10-PCS; 2023-06-20)
PROC: 5A1D70Z Performance of Urinary Filtration, Intermittent, Less than 6 Hours Per Day (ICD-10-PCS; 2023-06-21)
PROC: 5A1D70Z Performance of Urinary Filtration, Intermittent, Less than 6 Hours Per Day (ICD-10-PCS; 2023-06-23)
DX: A41.9 Sepsis, unspecified organism (principal); E43 Unspecified severe protein-calorie malnutrition; K25.4 Chronic or unspecified gastric ulcer with hemorrhage; R65.21 Severe sepsis with septic shock; K29.71 Gastritis, unspecified, with bleeding; N18.6 End stage renal disease; N17.9 Acute kidney failure, unspecified; E87.1 Hypo-osmolality and hyponatremia; I12.0 Hypertensive chronic kidney disease with stage 5 chronic kidney disease or end stage renal disease; E87.5 Hyperkalemia; Z20.822 Contact with and (suspected) exposure to COVID-19; N28.9 Disorder of kidney and ureter, unspecified; N30.90 Cystitis, unspecified without hematuria; D64.9 Anemia, unspecified; F10.20 Alcohol dependence, uncomplicated; K70.9 Alcoholic liver disease, unspecified; I95.9 Hypotension, unspecified; Z68.29 Body mass index [BMI] 29.0-29.9, adult
CPT/HCPCS: 36415; 36600; 43239; 43255; 71045; 76000; 76376; 76770; 80048; 80051; 80053; 81000; 81001; 81015; 82272; 82803; 82962; 83605; 83690; 83880; 84132; 84484; 85007; 85025; 85027; 85610-TC; 85730-TC; 86480; 86706; 86803; 86886; 86900; 86901; 86920; 87040; 87081; 87086; 87340; 88305; 88312; 88313; 89055; 90937; 93005; 94760; 96365; 97110-GP; 97116-GP; 97530-GP; 99285; C1052; C1750; C9113; G0378; J0696; J1644; J2001; J2250; J2354; J2405; J2543; J2704; J2765; J3010; J3480; J3490; J7030; J7050; J7060; P9021; P9046; Q9967